=== PATIENT | male | born 1965 | race Hispanic/Latino ===

== ENCOUNTER 2017-04-11 03:06 | Inpatient (IN) | payer MEDICAID, OTHER ==
[2017-04-11 03:06] VITALS: BMI 29.5
--- NOTE | 2017-04-11 03:38 | ED PDOC ---
Lower Extremity Pain/Injury Time Seen by Provider: 04/11/17 03:27 Chief Complaint (Nursing): Lower Extremity Problem/Injury Chief Complaint (Provider): right leg pain History Per: Patient (51 y/o male here with right leg pain worse with walking x 2 hours. Denies any falls. States he has had sx on this leg in past. Requests pain medication.) Past Medical History Reviewed: Historical Data, Nursing Documentation, Vital Signs Vital Signs: Last Vital Signs Temp 98.0 F 04/11/17 03:12 Pulse 91 H 04/11/17 03:12 Resp 17 04/11/17 03:12 BP 156/90 H 04/11/17 03:12 Pulse Ox 97 04/11/17 03:12 - Medical History PMH: Anxiety, Bipolar Disorder, HTN, Hypercholesterolemia, Schizophrenia Denies: Diabetes, Hepatitis, HIV, Seizures, Sexually Transmitted Disease - Family History Family History: States: Unknown Family Hx - Home Medications Home Medications: Ambulatory Orders Medication Instructions Recorded Benztropine Mesylate [Cogentin] 0.5 mg PO BID 12/09/14 Depakote ER 1,250 mg PO HS 12/09/14 Divalproex [Depakote ER] 500 mg PO DAILY 12/09/14 Hydroxyzine Pamoate 50 mg PO BID 12/09/14 Ibuprofen [Motrin] 600 mg PO Q6H PRN 12/09/14 Lisinopril 20 mg PO DAILY 12/09/14 Metoprolol Tartrate 25 mg PO BID 12/09/14 PARoxetine [Paxil] 5 mg PO DAILY 12/09/14 Percocet 5/325 mg Tab 12/09/14 Tramadol Hydrochloride [Tramadol 50 mg PO Q6H PRN 12/09/14 HCl] clonazePAM [clonAZEPAM] 1 mg PO BID 12/09/14 Aspirin [Aspirin Chewable] 81 mg PO DAILY #14 chew 12/11/14 Cyproheptadine [Periactin] 4 mg PO HS #14 tab 12/11/14 Gabapentin [Neurontin] 400 mg PO TID #42 cap 12/11/14 Gemfibrozil [Lopid] 600 mg PO BID #28 tab 12/11/14 Lisinopril [Zestril] 20 mg PO DAILY #14 tab 12/11/14 Metoprolol Tartrate [Lopressor] 25 mg PO BID #28 tab 12/11/14 Olanzapine [Zyprexa] 5 mg PO HS #14 12/11/14 Topiramate [Topamax] 25 mg PO BID #28 tab 12/11/14 clonazePAM [Klonopin] 0.5 mg PO BID #28 tab 12/11/14 traMADol [Ultram] 50 mg PO Q6H PRN #28 tab 12/11/14 Ibuprofen [Motrin] 600 mg PO Q8 PRN #15 tab 04/11/17 - Allergies Allergies/Adverse Reactions: Allergies Allergy/AdvReac Type Severity Reaction Status Date / Time No Known Allergies Allergy Verified 12/09/14 01:33 Review of Systems ROS Statement: Except As Marked, All Systems Reviewed And Found Negative Musculoskeletal: Positive for: Leg Pain Physical Exam - Reviewed Nursing Documentation Reviewed: Yes Vital Signs Reviewed: Yes - Physical Exam Appears: Positive for: Well, Non-toxic, No Acute Distress Head Exam: Positive for: ATRAUMATIC, NORMAL INSPECTION, NORMOCEPHALIC Skin: Positive for: Normal Color, Warm, DRY Eye Exam: Positive for: EOMI, Normal appearance, PERRL ENT: Positive for: Normal ENT Inspection Neck: Positive for: Normal, Painless ROM Cardiovascular/Chest: Positive for: Regular Rate, Rhythm Respiratory: Positive for: CNT, Normal Breath Sounds Gastrointestinal/Abdominal: Positive for: Normal Exam, Bowel Sounds, Soft Back: Positive for: Normal Inspection Extremity: Positive for: Normal ROM, Deformity (right leg anterior leg deformity noted.) Neurologic/Psych: Positive for: Alert, Oriented - ECG O2 Sat by Pulse Oximetry: 97 - Progress ED Course And Treament: motrin 600mg x 1 dose xry of tib-fib: no acute fx; hardware intact Disposition - Clinical Impression Clinical Impression: Leg pain - Patient ED Disposition Is Patient to be Admitted: No - Disposition Referrals: [facility] [Outside] Disposition: Routine/Home Disposition Time: 04:09 Condition: FAIR Prescriptions: Ibuprofen [Motrin] 600 mg PO Q8 PRN #15 tab PRN Reason: Pain, Moderate (4-7) Instructions: Leg Pain (ED) Forms: [employer] (Macedonian)
--- NOTE | 2017-04-11 06:18 | ED PDOC ---
- ECG O2 Sat by Pulse Oximetry: 97 Medical Decision Making Medical Decision Making: Time: 06:00 Patient signed out to me by MING Hernandez pending crisis evaluation Time: 03:35 Plan: --alcohol serum --Labs -Drug Screen, Urine --Crisis Evaluation --ibuprofen 600 PO --Tibia Fibula Left x-ray --urinalysis -- -- Reassess: crisis evaluated pt -Patient admitted under Dr. Gillespie under auditory and visual hallucinations. Scribe Attestation: Documented by Victorino Hoover, acting as a scribe for Rene Loja MD. Provider Scribe Attestation: All medical record entries made by the Scribe were at my direction and personally dictated by me. I have reviewed the chart and agree that the record accurately reflects my personal performance of the history, physical exam, medical decision making, and the department course for this patient. I have also personally directed, reviewed, and agree with the discharge instructions and disposition. Disposition Counseled Patient/Family Regarding: Studies Performed, Diagnosis, Need For Followup - Clinical Impression Clinical Impression: Leg pain - POA Present On Arrival: None - Disposition Disposition: Routine/Home Disposition Time: 07:00 Condition: FAIR
[2017-04-11 06:29] LABS: RBC URINE 5 /hpf (0-3); URINE BACTERIA RARE (<OCC); URINE BILIRUBIN NEGATIVE (NEGATIVE); URINE BLOOD NEGATIVE (NEGATIVE); URINE COLOR AMBER (YELLOW); URINE GLUCOSE (UA) NEG (Normal); URINE KETONE NEGATIVE (NEGATIVE); URINE LEUKOCYTE ESTERASE NEG Leu/uL (Negative); URINE PROTEIN 30 mg/dL (NEGATIVE); WBC URINE 1 /hpf (0-5)
--- NOTE | 2017-04-11 11:20 | RAD ---
PROCEDURE: Radiographs of the left tibia and fibula. HISTORY: right leg pain COMPARISON: None available. TECHNIQUE: Frontal and lateral views obtained. FINDINGS: BONES: Old tibial fracture status post open reduction internal esther and screw fixation. Old displaced proximal fibular fracture. No acute fracture. JOINT SPACES: Unremarkable. OTHER FINDINGS: Achilles enthesophyte. IMPRESSION: Old tibial and fibular fractures as described above. No acute fracture.
[2017-04-11] MEDS ORDERED: DiphenhydrAMINE 50 mg/ml Inj IM PRN (11:23)
[2017-04-11] MEDS ORDERED: Alum-Mag Hydrox-Simethicone Susp (30 mL) PO PRN (11:23)
[2017-04-11] MEDS ORDERED: Magnesium Hydroxide Susp 30 ml UD PO PRN (11:23)
--- NOTE | 2017-04-11 11:23 | PCM.BM ---
Treatment assets and liabiliti Patient Assests: self-reliant, ADL independent, other Patient Liabilities: financial problems, poor support system, substance abuse - Milieu Protocol Maintain good personal hygiene: daily Encourage regular showers, daily Remind patient to perform daily oral care, daily Assist patient to perform ADL's Maintain personal safety: every shift Educate patient to report safety concerns to staff, every shift Monitor environment for contraband/sharps Medication safety: Monitor for expected outcome, potential side effects: every shift, Assess barriers to learning: every shift, Assess readiness for medication education: every shift
--- NOTE | 2017-04-11 11:26 | PCM.BM ---
Treatment Plan Problems - Problems identified on initial assessmt Medication Nonadherence Date Initiated: 04/11/17 Time Initiated: 12:15 Date resolved: 04/18/17 Assessment reference: NA Status: Active Treatment assets and liabiliti Patient Assests: self-reliant, ADL independent, other Patient Liabilities: financial problems, poor support system, substance abuse - Milieu Protocol Maintain good personal hygiene: daily Encourage regular showers, daily Remind patient to perform daily oral care, daily Assist patient to perform ADL's Maintain personal safety: every shift Educate patient to report safety concerns to staff, every shift Monitor environment for contraband/sharps Medication safety: Monitor for expected outcome, potential side effects: every shift, Assess barriers to learning: every shift, Assess readiness for medication education: every shift
[2017-04-11] MEDS: Divalproex 250 mg DR(BID formulation) PO SCH ×2 (13:06→17:00)
--- NOTE | 2017-04-11 14:34 | PCM.PSYCH ---
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 [facility], pt with long history of schizoaffective disorder and polysubstance use pt presented to ER seeking admission, pt presented with psychotic and disorganized thought process, appearing internally preoccupied, uncooperative , refusing blood work, on the unit pt was also uncooperative disorganized unkempt , not attending to ADL seen responding to internal stimuli, pt angry and irritable when offered antipsychotic , refusing medications, loud with thought blocking, pt denied suicidal or homicidal ideations denied command hallucinations poor insight into illness Current Medications: Active Medications Generic Name Dose Route Start Last Admin Trade Name Freq PRN Reason Stop Dose Admin Acetaminophen 650 mg 04/11/17 11:23 Tylenol 325mg Tab PO Q4 PRN Pain, moderate (4-7) Al Hydrox/Mg Hydrox/Simethicone 30 ml 04/11/17 11:23 Maalox Plus 30 Ml PO Q4 PRN Dyspepsia Baclofen 10 mg 04/11/17 11:36 Lioresal PO TID PRN Leg cramps Clonidine HCl 0.1 mg 04/11/17 17:00 Catapres PO 04/14/17 17:01 Q8 TREVA Diphenhydramine HCl 50 mg 04/11/17 11:23 Benadryl IM Q6 PRN Extrapyramidal S/S Unable PO Diphenhydramine HCl 50 mg 04/11/17 11:23 04/11/17 12:19 Benadryl PO 50 mg Q6 PRN Administration Extrapyramidal Symptoms Divalproex Sodium 750 mg 04/11/17 12:30 04/11/17 13:06 Depsara Dennis(*Bid*) PO 750 mg BID TREVA Administration Haloperidol 5 mg 04/11/17 11:23 Haldol PO Q4 PRN Agitation Haloperidol Lactate 5 mg 04/11/17 11:23 Haldol IM Q4 PRN Agitation, Unable to Take PO Loperamide HCl 2 mg 04/11/17 11:34 Imodium PO Q4 PRN After Loose Bowel Movement Lorazepam 2 mg 04/11/17 11:23 Ativan IM Q4 PRN Anxiety/Agitation,Unable PO Lorazepam 2 mg 04/11/17 11:23 04/11/17 12:19 Ativan PO 2 mg Q4 PRN Administration Anxiety/Agitation Magnesium Hydroxide 30 ml 04/11/17 11:23 Milk Of Magnesia PO HS PRN Constipation Multivitamins/Minerals 1 tab 04/12/17 09:00 Therapeutic-M Tab PO DAILY TREVA Risperidone 2 mg 04/11/17 17:00 Risperdal M-Tab PO BID TREVA Past Psychiatric History - Past Psychiatric History Previous Treatment History: Inpatient Explanation of prior treatment: pt has multiple inpatient hospitalizations at [facility] , history of violence and non compliance History of ETOH/Drug Use: pt has history of polysubstance use urine toxicology positive for cannabis, cocaine and opiates History of Family Illness: pt unccoperative Pertinent Medical Hx (Current Medical&Sleep Prob, Allergies): Allergies Allergy/AdvReac Type Severity Reaction Status Date / Time No Known Allergies Allergy Verified 12/09/14 01:33 Benztropine Mesylate [Cogentin] 0.5 mg PO BID 12/09/14 Depakote ER 1,250 mg PO HS 12/09/14 Divalproex [Depakote ER] 500 mg PO DAILY 12/09/14 Hydroxyzine Pamoate 50 mg PO BID 12/09/14 Ibuprofen [Motrin] 600 mg PO Q6H PRN 12/09/14 Lisinopril 20 mg PO DAILY 12/09/14 Metoprolol Tartrate 25 mg PO BID 12/09/14 PARoxetine [Paxil] 5 mg PO DAILY 12/09/14 Percocet 5/325 mg Tab 12/09/14 Tramadol Hydrochloride [Tramadol HCl] 50 mg PO Q6H PRN 12/09/14 clonazePAM [clonAZEPAM] 1 mg PO BID 12/09/14 Aspirin [Aspirin Chewable] 81 mg PO DAILY #14 chew 12/11/14 Cyproheptadine [Periactin] 4 mg PO HS #14 tab 12/11/14 Gabapentin [Neurontin] 400 mg PO TID #42 cap 12/11/14 Gemfibrozil [Lopid] 600 mg PO BID #28 tab 12/11/14 Lisinopril [Zestril] 20 mg PO DAILY #14 tab 12/11/14 Metoprolol Tartrate [Lopressor] 25 mg PO BID #28 tab 12/11/14 Olanzapine [Zyprexa] 5 mg PO HS #14 12/11/14 Topiramate [Topamax] 25 mg PO BID #28 tab 12/11/14 clonazePAM [Klonopin] 0.5 mg PO BID #28 tab 12/11/14 traMADol [Ultram] 50 mg PO Q6H PRN #28 tab 12/11/14 Ibuprofen [Motrin] 600 mg PO Q8 PRN #15 tab 04/11/17 Mental Status Examination - Personal Presentation Personal Presentation: Looks older than stated age Additional comments: unkempt disheveled, hypervigilant and threatening - Affect Affect: Depressed - Motor Activity Motor Activity: Violent - Reliability in Providing Information Reliability in Providing Information: Poor, due to alteration in thoughts, Poor , due to altered mood - Speech Speech: Disorganized - Mood Mood: Anxious - Formal Thought Process Formal Thought Process: Hallucinations, Paranoia Additional comments: pt internally preoccupied, responding to internal stimuli, denied command hallucinations - Obsessions/Compulsions Obsessions: No Compulsions: No - Cognitive Functions Orientation: Person Sensorium: Alert Attention/Concentration: Easily distracted Abstract Thinking: [place] Judgement: Imparied, as evidence by: Poor judgement, Imparied, as evidence by: Lack of insight into illness Additional comments: pt uncooperative, unable to assess - Risk Risk: Diminished functioning - Strength & Assets Inventory Strength & Assets Inventory: Life experience - Limitations Additional comments: poor compliance DSM 5 DX - DSM 5 DSM 5 Diagnosis: schizoaffective disorder bipolar cocaine use disorder cannabis use disorder opiate use disorder - Recommended/Plan of Treatment Treatment Recommendations and Plan of Treatment: start clonidine protocol for symptoms and signs of opiate withdrawl monitor pt vitals start pt on rdepakote 750 mg bid risperidone 2mg bid refer pt for screening due to violent behavior and non compliance with treatment including medications and blood work Projected ELOS: guarded
[2017-04-11] MEDS ORDERED: Risperidone M tab 1 MG PO SCH (17:00)
[2017-04-11] MEDS: Risperidone M TAB 2 MG PO SCH (17:00)
[2017-04-12 04:03] VITALS: O2SAT 97
--- NOTE | 2017-04-12 08:50 | CP.PCM.CON ---
History of Present Illness - History of Present Illness History of Present Illness: Hospitalist Consult Note 51 year old male patient PMHx HTN, schizoaffective disorder, polysubstance use see in psychiatric unit for medical consultation. Patient was admitted from [facility] ED for suicidal ideation. Patient uncooperative, unwilling to answer questions pertaining to HPI. Per nursing, patient has been refusing all treatment; occasionally accepts taking psych medications. Patient admits to being noncompliant with at home antihypertensive and psychiatric medications. Denies N/V/D/SOB/palpitations. PMH: HTN, schizoaffective disorder, polysubstance use PSH: L leg ORIF FH: denies SH: denies ETOH/tobacco/illicit drug use (per chart - UA positive for opiates, cocaine, marijuana; light smoker <10 cigarettes/day) Meds: Vasotec All: NKDA Review of Systems - Review of Systems All systems: reviewed and no additional remarkable complaints except (as per HPI ) Past Patient History - Past Social History Smoking Status: Light Smoker < 10 Cigarettes Daily - CARDIAC Hx Cardiac Disorders: No Hx Hypertension: No - PULMONARY Hx Tuberculosis: No - NEUROLOGICAL HX Cerebrovascular Accident: No Hx Seizures: No - HEMATOLOGICAL/ONCOLOGICAL Hx Cancer: No Hx Human Immunodeficiency Virus (HIV): No - MUSCULOSKELETAL/RHEUMATOLOGICAL Hx Musculoskeletal Disorders: Yes - GENITOURINARY/GYNECOLOGICAL Hx Sexually Transmitted Disorders: No - PSYCHIATRIC Hx Bipolar Disorder: Yes Hx Schizophrenia: Yes Hx Substance Use: Yes (cocaine ,MJ ,Opiates) - ANESTHESIA Hx Anesthesia: No Meds Home Medications: Home Medication List Medication Instructions Recorded Confirmed Type Ibuprofen [Motrin] 600 mg PO Q8 PRN #15 tab 04/11/17 Rx Allergies/Adverse Reactions: Allergies Allergy/AdvReac Type Severity Reaction Status Date / Time No Known Allergies Allergy Verified 12/09/14 01:33 - Medications Medications: Current Medications Acetaminophen (Tylenol 325mg Tab) 650 mg PO Q4 PRN PRN Reason: Pain, moderate (4-7) Al Hydrox/Mg Hydrox/Simethicone (Maalox Plus 30 Ml) 30 ml PO Q4 PRN PRN Reason: Dyspepsia Baclofen (Lioresal) 10 mg PO TID PRN PRN Reason: Leg cramps Clonidine HCl (Catapres) 0.1 mg PO Q8 TREVA Stop: 04/14/17 17:01 Last Admin: 04/12/17 00:08 Dose: 0.1 mg Diphenhydramine HCl (Benadryl) 50 mg IM Q6 PRN PRN Reason: Extrapyramidal S/S Unable PO Diphenhydramine HCl (Benadryl) 50 mg PO Q6 PRN PRN Reason: Extrapyramidal Symptoms Last Admin: 04/11/17 12:19 Dose: 50 mg Divalproex Sodium (Depakote Dr(*Bid*)) 750 mg PO BID [facility] Last Admin: 04/11/17 13:06 Dose: 750 mg Haloperidol (Haldol) 5 mg PO Q4 PRN PRN Reason: Agitation Haloperidol Lactate (Haldol) 5 mg IM Q4 PRN PRN Reason: Agitation, Unable to Take PO Loperamide HCl (Imodium) 2 mg PO Q4 PRN PRN Reason: After Loose Bowel Movement Lorazepam (Ativan) 2 mg IM Q4 PRN PRN Reason: Anxiety/Agitation,Unable PO Lorazepam (Ativan) 2 mg PO Q4 PRN PRN Reason: Anxiety/Agitation Last Admin: 04/12/17 00:02 Dose: 2 mg Magnesium Hydroxide (Milk Of Magnesia) 30 ml PO HS PRN PRN Reason: Constipation Multivitamins/Minerals (Therapeutic-M Tab) 1 tab PO DAILY [facility] Risperidone (Risperdal M-Tab) 2 mg PO BID [facility] Physical Exam - Constitutional Appears: Well, Non-toxic, No Acute Distress, Agitated Additional comments: Uncooperative - Head Exam Head Exam: ATRAUMATIC, NORMAL INSPECTION, NORMOCEPHALIC - Eye Exam Eye Exam: EOMI, Normal appearance, PERRL Pupil Exam: NORMAL ACCOMODATION - ENT Exam ENT Exam: Mucous Membranes Moist, Normal Exam, Normal External Ear Exam - Neck Exam Neck exam: Positive for: Normal Inspection. Negative for: Tenderness - Respiratory Exam Respiratory Exam: Clear to Auscultation Bilateral, NORMAL BREATHING PATTERN. absent: Rales, Rhonchi, Wheezes - Cardiovascular Exam Cardiovascular Exam: REGULAR RHYTHM, +S1, +S2. absent: Diastolic murmur, Gallop , JVD, RRR, Systolic Murmur - GI/Abdominal Exam GI & Abdominal Exam: Normal Bowel Sounds, Soft. absent: Guarding, Tenderness - Rectal Exam Rectal Exam: Deferred - Extremities Exam Extremities exam: Positive for: full ROM, normal inspection. Negative for: calf tenderness, pedal edema, tenderness Additional comments: No pain on palpation left lower extremity. ROM full without pain or crepitus noted. - Back Exam Back exam: NORMAL INSPECTION. absent: tenderness - Neurological Exam Neurological exam: Alert, Normal Gait - Psychiatric Exam Psychiatric exam: Agitated - Skin Skin Exam: Intact, Normal Color, Warm Results - Vital Signs Recent Vital Signs: Last Vital Signs Temp 969 F H 04/11/17 13:00 Pulse 78 04/12/17 00:08 Resp 22 04/11/17 21:00 BP 150/90 04/12/17 00:08 Pulse Ox 97 04/12/17 04:02 Assessment & Plan (1) Schizoaffective disorder Assessment and Plan: Management per psychiatry Status: Chronic (2) Polysubstance abuse Assessment and Plan: Management per psychiatry Status: Acute (3) Hypertension Assessment and Plan: BP 150/90 Restart home med Vasotec 10mg Clonidine 0.1mg Status: Chronic (4) Leg pain Assessment and Plan: No LLE complaints Left tib-fib XR reviewed: Old tibial fx s/p IM esther and screw fixation. Old displaced proximal fibular fracture. No acute fractures noted. Tylenol prn pain Status: Chronic
[2017-04-12] MEDS ORDERED: Multivitamin With Minerals Tab PO SCH (09:00)
[2017-04-12 09:16] VITALS: BP 142/51; RESP 18; TEMP 97.7
[2017-04-12] MEDS: Risperidone M TAB 2 MG PO SCH (09:38)
[2017-04-12] MEDS: Divalproex 250 mg DR(BID formulation) PO SCH (09:38)
[2017-04-12 10:39] VITALS: PULSE 18
--- NOTE | 2017-04-12 14:01 | PCM.PYCHPN ---
Psychiatric Progress Note - Psychiatric Progress Note Patient seen today, length of contact: pt evaluated discussed with team chart reviewed Patient Chief Complaint: lI need to get out of here now Problems Identified/Issues Discussed: pt on evaluation, angry irritable, domineering and hypervigilant affect, demanding to leave on the spot signed 48 hours notice, refusing medications, disorganized thought process, internally preoccupied and paranoid towards staff discussed with pt need to continue with treatment, pt refused, loud threatening and poor insight into his illness DSM 5 Symptoms Update: schizoaffective disorder bipolar antisocial personality disorder Medication Change: Yes (start seroquel 100mg bid) Medical Record Reviewed: Yes Consults ordered or reviewed: consult by hospitalist Mental Status Examination - Cognitive Function Orientation: Person, Place Attention: Poor Concentration: Poor Association: Loose Fund of Knowledge: Poor Decription of patient's judgement and insights: impaired insight , poor judgment and poor impulse control - Mood Mood: Anxious - Affect Affect: Depressed - Speech Speech: Loud - Formal Thought Process Formal Thought Process: Hallucinations, Paranoia, Circumstantial Psychotic Thoughts and Behaviors: pt presenting with disorganized thought process and paranoid delusions towards staff - Suicidal Ideation Suicidal Ideation: No - Homicidal Ideation Homicidal Ideation: Yes Plan: pt threatening and hypervigilant Goal/Treatment Plan - Goal/Treatment Plan Need for Continued Stay: Discharge may exacerbated symptoms, Severe functional impairment Progress Toward Problem(s) and Goals/Treatment Plan: continue clonidine protocol for symptoms and signs of opiate withdrawl monitor pt vitals depakote 750 mg bid discontinue risperidone 2mg bid as pt reported previous side effect of gynecomastia start seroquel 100mg bid refer pt for screening due to violent behavior and non compliance with treatment including medications and blood work
--- NOTE | 2017-04-12 15:13 | PCM.PYCHDC ---
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 [facility], pt with long history of schizoaffective disorder and polysubstance use pt presented to ER seeking admission, pt presented with psychotic and disorganized thought process, appearing internally preoccupied, uncooperative , refusing blood work, on the unit pt was also uncooperative disorganized unkempt , not attending to ADL seen responding to internal stimuli, pt angry and irritable when offered antipsychotic , refusing medications, loud with thought blocking, pt denied suicidal or homicidal ideations denied command hallucinations poor insight into illness Consultations:: List each consultation separately and include: 1. Reason for request. 2. Findings. 3. Follow-up Consultations: consult by hospitalist Summary of Hospital Course include:: 1. Description of specific treatment plan utilized for patients during their course of treatmen. 2. Summarize the time- course for resolution of acute symptoms and/or regressed behaviors. 3. Describe issues identified and worked on during hospitalization. 4. Describe medication utilized. 5. Describe medical problems identified and treated. 6. Reassessment of suicide risk Summary of Hospital Course: pt ON ADMISION ANGRY IRRITABLE PARANOID, REFUSING MEDICATIONS DENIED SUICIDAL OR HOMICIDAL IDEATIONS PT SIGNED 48 HOUR TO LEAVE PT WAS SCREENED FOR HIGHER LEVEL OF CARE AND INVOLUNTARY ADMISSION, PT WAS DECLINED HE SIGNED TO LEAVE AGAINST MEDICAL ADVISE EDUCATE PT ABOUT RISK OF RELAPSE AND OVERDOSE ON DISCHARGE HE DENIED SUICIDAL OR HOMICIDAL IDEATIONS DENIED PERCEPTUAL DISTURBANCES - Final Diagnosis (DSM 5) Condition upon Discharge: FAIR Disposition: Trans to Other Acute Care Hosp Follow-up Treatment Plan: continue clonidine protocol for symptoms and signs of opiate withdrawl monitor pt vitals depakote 750 mg bid discontinue risperidone 2mg bid as pt reported previous side effect of gynecomastia start seroquel 100mg bid refer pt for screening due to violent behavior and non compliance with treatment including medications and blood work Prescriptions/Medication Reconciliation: Ibuprofen [Motrin] 600 mg PO Q8 PRN #15 tab PRN Reason: Pain, Moderate (4-7)
== END 2017-04-12 15:00 | disposition short-term general hospital (02) | DRG 430 ==
LOC: H.ER 03:06 → H.ERHOLD 06:52 → H.PSYCH 09:58
PROVIDERS: ADMIT Psychiatry & Neurology Psychiatry; ATTEND Psychiatry & Neurology Psychiatry
PROC: GZHZZZZ Group Psychotherapy (ICD-10-PCS; principal; 2017-04-11)
PROC: GZ58ZZZ Individual Psychotherapy, Cognitive-Behavioral (ICD-10-PCS; 2017-04-11)
DX: F25.0 Schizoaffective disorder, bipolar type (principal); R45.851 Suicidal ideations; Z91.19 Patient's noncompliance with other medical treatment and regimen; F11.90 Opioid use, unspecified, uncomplicated; F14.90 Cocaine use, unspecified, uncomplicated; I10 Essential (primary) hypertension; F31.9 Bipolar disorder, unspecified; F12.90 Cannabis use, unspecified, uncomplicated; F60.2 Antisocial personality disorder; E78.00 Pure hypercholesterolemia, unspecified; F41.9 Anxiety disorder, unspecified; F17.210 Nicotine dependence, cigarettes, uncomplicated; M79.662 Pain in left lower leg; Z87.81 Personal history of (healed) traumatic fracture